=== PATIENT | male | born 1955 | race Caucasian/White ===

== ENCOUNTER 2017-06-12 11:38 | Emergency (ER) | payer OTHER ==
--- NOTE | 2017-06-12 13:22 | EDPHY ---
H & P Stated Complaint: Lower back pain worsening x1 month since heavy lifting inj at work Time Seen by Provider: 06/12/17 12:59 - Personal History Current Tetanus/Diphtheria Vaccine: Unsure Current Tetanus Diphtheria and Acellular Pertussis (TDAP): Unsure - Medical/Surgical History Hx Asthma: No Hx Chronic Respiratory Disease: No Hx Diabetes: No Hx Cardiac Disease: No Hx Renal Disease: No Hx Cirrhosis: No Hx Alcoholism: No Hx HIV/AIDS: No Hx Splenectomy or Spleen Trauma: No Other PMH: lower back inj 2014. hernia surgery - Social History Smoking Status: Never smoked Constitutional: Initial Vital Signs Temperature (C) 37.0 C 06/12/17 11:47 Heart Rate 68 06/12/17 11:47 Respiratory Rate 20 06/12/17 11:47 Blood Pressure 159/106 H 06/12/17 11:47 O2 Sat (%) 97 06/12/17 11:47 O2 Delivery Mode Room Air Allergies/Adverse Reactions: No Known Allergies Allergy (Unverified 06/12/17 11:45) Home Medications: Medication Instructions Recorded Advil 06/12/17 Diazepam [Valium 5 MG (*)] 5 mg PO TID PRN #15 tab 06/12/17 oxyCODONE IR [Oxycodone Ir (*)] 5 - 10 mg PO Q6 PRN #20 tab 06/12/17 predniSONE 40 mg PO DAILY #10 tab 06/12/17 predniSONE 40 mg PO DAILY #10 tab 06/12/17 Medical Decision Making - Diagnostics Imaging: Discussed imaging studies w/ scallop binder Radiologist, I viewed and interpreted images myself ED Course/Re-evaluation: CHIEF COMPLAINT: "I injured my lower back again" HISTORY OF PRESENT ILLNESS: The patient is a 62 y/o male arriving with his complaining of worsening lower back pain after lifting at work 1 months ago. He has a history of a prior back injury in 2014 with 2 herniated discs. He treated that episode with PT, anti-inflammatories, a cortisone injection. For this most recent episode he has been doing physical therapy. He says during these treatments he is "twisting me on the bench trying to get my back to pop" and goes on to say "I would leave there feeling much worse than went I went in. " Last week he lied down on an inclined bench at work for 10 minutes and had some improvement in his lower back pain; afterwards he started walking around again and "felt a big clunk" that resulted in a lot of relief. He told his PT this and was told this sounded like a locked facet joint rather than a disc herniation. His PT again attempted a manipulation of some sort, which exacerbated his pain again. The patient was able to temporarily relieve pain somewhat with the incline bench. However, overall his pain has still be worsening and he's having difficulty transitioning from lying to standing and sitting. He cannot find a comfortable position. He has been using Advil with no alleviation. No weakness, paresthesias, incontinence, saddle anesthesia, fever. He has no history of spinal surgeries. REVIEW OF SYSTEMS: A 10 point review of systems was performed and is negative with the exception of the elements mentioned in the history of present illness. PHYSICAL EXAM: HR, BP, O2 Sat, RR. Temp noted General Appearance: Alert, well hydrated, appropriate, and non-toxic appearing. Appears very uncomfortable, shifting positions frequently. Head: Atraumatic without scalp tenderness or obvious injury Eyes: Pupils equal, round, reactive to light and accommodation, EOMI, no trauma , no injection. Nose: Atraumatic, no rhinorrhea, clear. Throat: Mucus membranes moist. Neck: Supple, nontender, no lymphadenopathy. Respiratory: No retractions, no distress, no wheezes, and no accessory muscle use. Lungs are clear to auscultation bilaterally. Cardiovascular: Regular rate and rhythm, no murmurs, rubs, or gallops. Good capillary refill all extremities. Gastrointestinal: Abdomen is soft, nontender, non-distended, no masses, no rebound, no guarding, no peritoneal signs. Musculoskeletal: Normal active ROM of all extremities, atraumatic. Neurological: Alert, appropriate, and interactive. The patient has non-focal cranial nerves, motor, sensory, and cerebellar exam. Skin: No rashes, good turgor, no nodules on palpation. Past medical history: Disc herniations, prior lumbar back injury 2014 Past surgical history: No spinal surgeries Family history: Noncontributory Social history: at bedside. DIAGNOSTICS/PROCEDURES/CRITICAL CARE TIME: Lumbar MRI: L4-L5 left-sided disc herniation. DIFFERENTIAL DIAGNOSIS: The differential diagnosis for the patient's back pain included but was not limited to musculoskeletal pain, epidural abscess, herniated disk, spinal fracture, and intra-abdominal causes including urinary system. MEDICAL DECISION MAKING: This is a 62 y/o male who presents with a 1-month history of worsening lumbar back pain despite PT and ibuprofen that is now intractable. He's had multiple manipulations by his PT that aggravate his symptoms as well. He has a normal neurologic exam. Plan for lumbar spine MRI to further evaluate his symptoms and symptom management. Do not suspect acute cauda equina syndrome at this time. 2 tabs PO Oxycodone and 4mg PO Zofran administered. MRI shows lumbar disc herniation. Reevaluated patient and discussed results. He is more comfortable after Oxycodone. He will be discharged with scripts for OxyIR, Valium, and prednisone and referral to neurosurgery for follow up. Return precautions discussed. He is comfortable with this plan. - Data Points Medications Given: Discontinued Medications Ondansetron HCl (Zofran Odt) 4 mg PO EDNOW ONE Stop: 06/12/17 13:35 Last Admin: 06/12/17 13:52 Dose: 4 mg Oxycodone/Acetaminophen (Percocet 5/325) 2 tab PO EDNOW ONE Stop: 06/12/17 13:35 Last Admin: 06/12/17 13:52 Dose: 2 tab Departure - Departure Disposition: Home, Routine, Self-Care Clinical Impression: Lumbar disc herniation, L4-L5 disc bulge Condition: Good Instructions: Lumbar Disc Herniation (ED) Additional Instructions: 1. Use OxyIR as prescribed when needed for severe pain. This medication can make you drowsy. Do not use while driving or operating heavy machinery. 2. Take Prednisone as prescribed. 3. Use Valium as prescribed for muscle spasm. This medication can make you drowsy. Do not use while driving or operating heavy machinery. 4. Follow up with Dr. Ponce, back specialist, within one week. I recommend calling today to schedule this appointment. 5. Return to the ED for severe pain, weakness or numbness in your leg or around your genitals, incontinence, or any other worsening of condition. Referrals: [facility] CAMACHO [Other] - As per Instructions Goldy Ponce MD [Medical Doctor] - As per Instructions Prescriptions: Diazepam [Valium 5 MG (*)] 5 mg PO TID PRN #15 tab PRN Reason: Spasms oxyCODONE IR [Oxycodone Ir (*)] 5 - 10 mg PO Q6 PRN #20 tab PRN Reason: Pain, Severe predniSONE 40 mg PO DAILY #10 tab predniSONE 40 mg PO DAILY #10 tab Report Scribed for: Fer Peraza Report Scribed by: Stephanie Davis Date of Report: 06/12/17 Time of Report: 13:23
[2017-06-12] MEDS ORDERED: OXYCODONE/APAP 5/325 TAB PO ONE (13:34)
[2017-06-12] MEDS ORDERED: ONDANSETRON DISINTEGRATING 4 MG TAB PO ONE (13:34)
[2017-06-12 15:00] VITALS: BP 145/87; PULSE 88; RESP 20; TEMP 98.4; O2SAT 95
== END 2017-06-12 15:20 | disposition home or self-care (01) ==
DX: M51.26 Other intervertebral disc displacement, lumbar region (principal)